=== PATIENT | female | born 1990 | race Caucasian/White ===

== ENCOUNTER 2017-10-16 08:00 | Outpatient (CLI) | payer MEDICAID ==
[2017-10-16 18:44] LABS: BASOPHILS % (AUTO) 0.4 %; EOSINOPHILS # (AUTO) 0.1 10^3/uL (0.0-0.7); EOSINOPHILS % (AUTO) 1.4 %; HGB - HEMOGLOBIN 11.1 g/dL (12.0-16.0); LYMPHOCYTES # (AUTO) 1.8 10^3/uL (1.5-3.5); LYMPHOCYTES % (AUTO) 43.4 %; MEAN CORPUSCULAR HEMOGLOBIN 26.8 pg (27.0-31.0); MEAN CORPUSCULAR HGB CONC 32.8 g/dL (32.0-36.0); MEAN CORPUSCULAR VOLUME 81.7 fL (81.0-99.0); MEAN PLATELET VOLUME 8.6 fL (7.9-10.8); MONOCYTES # (AUTO) 0.3 10^3/uL (0.0-1.0); MONOCYTES % (AUTO) 6.3 %; NEUTROPHILS % (AUTO) 48.5 %; PLT - PLATELET COUNT 233 10^3/uL (130-450); RED BLOOD COUNT 4.16 10^6/uL (4.20-5.40); RED CELL DISTRIBUTION WIDTH 14.2 % (12.0-15.0); WHITE BLOOD COUNT 4.1 x10^3/uL (4.8-10.8)
[2017-10-16 19:18] LABS: ALBUMIN 4.3 g/dL (3.2-5.5); ALBUMIN/GLOBULIN RATIO 1.3 (1.0-2.2); ALKALINE PHOSPHATASE 50 IU/L (42-121); ALT ALANINE AMINOTRANSFERASE 15 IU/L (10-60); AST ASPARTATE AMINOTRANSFERASE 18 IU/L (10-42); BILIRUBIN,TOTAL < 0.2 mg/dL (0.2-1.0); BUN - BLOOD UREA NITROGEN 12 mg/dL (6-20); CALCIUM 8.8 mg/dL (8.5-10.3); CARBON DIOXIDE - CO2 27 mmol/L (21-32); CHLORIDE 105 mmol/L (101-111); CHOL/HDL RATIO 2.8 (<4.4); CHOLESTEROL 157 mg/dL; CREATININE 0.7 mg/dL (0.4-1.0); GFR - MDRD 102 (>89); GLUCOSE 77 mg/dL (70-100); HDL CHOLESTEROL 57 mg/dL; LDL CHOLESTEROL,CALCULATED 86 mg/dL; LDL/HDL RATIO 1.5 (<4.4); SODIUM 137 mmol/L (135-145); TOTAL PROTEIN 7.6 g/dL (6.7-8.2); VLDL CHOLESTEROL 14 mg/dL
== END 2017-10-16 08:01 | disposition home or self-care (01) ==
LOC: LAB.N 08:00
PROVIDERS: ATTEND Nurse Practitioner Gerontology
DX: Z13.9 Encounter for screening, unspecified (principal)
CPT/HCPCS: 36415; 80053; 80061; 83721; 84443; 85025

== ENCOUNTER 2018-09-28 11:15 | Emergency (ER) | payer MEDICAID ==
[2018-09-28] MEDS ORDERED: ONDANSETRON ODT 4 MG TABLET TL STA (13:09)
--- NOTE | 2018-09-28 13:11 | ED Physician Documentation ---
PD HPI NVD - Stated complaint Stated Complaint: FLU LIKE SX/9WKS PREG - Chief complaint Chief Complaint: Abd Pain - History obtained from History obtained from: Patient - History of Present Illness Timing - onset: Yesterday Timing - duration: Days (2) Timing - details: Gradual onset, Still present Associated symptoms: Fever Contributing factors: Sick contact ( sick with flu) Improved by: Laying still, Vomiting Worsened by: Eating Similar symptoms before: Diagnosis (morning sickness) Recently seen: Clinic - Additonal information Additional information: 27-year-old female who is 9 weeks has developed nausea and vomiting as well as low-grade fever. Her family is sick with the flu and she has developed symptoms yesterday. She does not have any significant nasal congestion she has minimal cough she does have nausea and vomiting and this is more than what she remembers from morning sickness previously with her prior . Review of Systems Constitutional: reports: Fever, Chills. denies: Myalgias, Fatigue Eyes: denies: Decreased vision Ears: denies: Ear pain Nose: denies: Rhinorrhea / runny nose, Congestion Throat: denies: Sore throat Cardiac: denies: Chest pain / pressure, Palpitations Respiratory: reports: Cough. denies: Dyspnea GI: reports: Nausea, Vomiting. 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 : None HEENT: None Psych: None Musculoskeletal: None Derm: None - Past Surgical History Past Surgical History: Yes - Present Medications Home Medications: Ambulatory Orders Medication Instructions Recorded Confirmed Ondansetron Odt [Zofran] 4 mg TL Q6H PRN #10 tablet 09/28/18 - Allergies Allergies/Adverse Reactions: Allergies Allergy/AdvReac Type Severity Reaction Status Date / Time No Known Drug Allergies Allergy Verified 09/28/18 11:44 - Social History Does the pt smoke?: No Smoking Status: Never smoker Does the pt drink ETOH?: No Does the pt have substance abuse?: No - Immunizations Immunizations are current?: Yes - POLST Patient has POLST: No PD ED PE NORMAL - Vitals Vital signs reviewed: Yes (normal ) - General General: Alert and oriented X 3, No acute distress, Well developed/nourished - HEENT HEENT: Atraumatic, PERRL, EOMI, Ears normal, Other (dry mucous membranes ) - Neck Neck: Supple, no meningeal sign, No bony TTP - Cardiac Cardiac: RRR, No murmur - Respiratory Respiratory: No respiratory distress, Clear bilaterally - Abdomen Abdomen: Soft, Non tender - Back Back: No CVA TTP, No spinal TTP - Derm Derm: Normal color, Warm and dry, No rash - Extremities Extremities: No deformity, No edema - Neuro Neuro: Alert and oriented X 3, hammerer helper 2-12 intact, No motor deficit, No sensory deficit, Normal speech Eye Opening: Spontaneous Motor: Obeys Commands Verbal: Oriented GCS Score: 15 - Psych Psych: Normal mood, Normal affect Results - Vitals Vitals: Vital Signs - 24 hr 09/28/18 11:40 Temperature 36.5 C Heart Rate 94 Respiratory 18 Rate Blood Pressure 125/79 O2 Saturation 100 Oxygen O2 Source Room air Procedures - Bedside sono Bedside sono by EMP: With use of bedside ultrasound the uterus is imaged there is an 8-week 6-day gestational sac present with a viable fetus. - IVC sono (time) 1300 Bedside IVC sono: IVC measures (cm) (1.27), IVC collapsed c insp (cm) (complete), Dehydration (est 1 liter deficit) PD MEDICAL DECISION MAKING - ED course Complexity details: reviewed results, re-evaluated patient, considered differential, d/w patient, d/w family ED course: 27-year-old female with nausea and vomiting 9 weeks is administered Zofran and a fluid challenge. She is mildly dehydrated and I do not believe she has influenza. Departure - Departure Disposition: 01 Home, Self Care Clinical Impression: Dehydration, Vomiting as reason for care in Condition: Stable Instructions: ED Dehydration, ED Preg Morning Sickness Follow-Up: Akua Saravia ARNP [Primary Care Provider] - Prescriptions: Ondansetron Odt [Zofran] 4 mg TL Q6H PRN #10 tablet PRN Reason: Nausea / Vomiting
[2018-09-28 14:19] VITALS: BP 113/68
== END 2018-09-28 14:29 | disposition home or self-care (01) ==
LOC: ED 11:15
DX: O21.1 Hyperemesis gravidarum with metabolic disturbance (principal); E86.0 Dehydration; Z3A.09 9 weeks gestation of pregnancy
CPT/HCPCS: 99283

== ENCOUNTER 2019-10-10 00:28 | Emergency (ER) | payer MEDICAID ==
[2019-10-10 00:34] VITALS: BP 146/84
--- NOTE | 2019-10-10 01:15 | ED Physician Documentation ---
History of Present Illness - Stated complaint Stated Complaint: COUGH/SINUS PRESSURE - Chief complaint Chief Complaint: Heent - Additonal information Additional information: Patient comes emergency department complaining of rhinorrhea with worsening cough over the last week. Patient states that her cough has gotten deeper and deeper until she now has a searing pain in her right chest shooting to her back every time she coughs. She states she is also had a sore throat. She denies noting fever, headache, nausea, or vomiting. She does not know of any sick contacts. She states that she has a spouse and 2 children at home. Patient s tates that she has been working on her garden and that she does have seasonal allergies, but this feels like more than that. Patient does not have any known covid exposures. No other complaints at this time. Review of Systems Ten Systems: 10 systems reviewed and negative Constitutional: reports: Reviewed and negative Eyes: reports: Reviewed and negative Ears: reports: Reviewed and negative Nose: reports: Rhinorrhea / runny nose, Congestion, Sinus pressure / pain Throat: reports: Reviewed and negative Cardiac: reports: Reviewed and negative Respiratory: reports: Cough GI: reports: Reviewed and negative : reports: Reviewed and negative Skin: reports: Reviewed and negative Musculoskeletal: reports: Reviewed and negative Neurologic: reports: Reviewed and negative Psychiatric: reports: Reviewed and negative Endocrine: reports: Reviewed and negative Immunocompromised: reports: Reviewed and negative PD PAST MEDICAL HISTORY - Past Medical History Cardiovascular: None Respiratory: None Neuro: None Endocrine/Autoimmune: HyPOthyroidism 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 : None HEENT: None Psych: None Musculoskeletal: None Derm: None - Past Surgical History Past Surgical History: Yes - Present Medications Home Medications: Ambulatory Orders Medication Instructions Recorded Confirmed Ondansetron Odt [Zofran] 4 mg TL Q6H PRN #10 tablet 09/28/18 Benzonatate [Tessalon Perle] 100 - 200 mg PO TID PRN #30 capsule 10/10/19 - Allergies Allergies/Adverse Reactions: Allergies Allergy/AdvReac Type Severity Reaction Status Date / Time No Known Drug Allergies Allergy Verified 09/28/18 11:44 - Social History Does the pt smoke?: No Smoking Status: Never smoker Does the pt drink ETOH?: No Does the pt have substance abuse?: No - Immunizations Immunizations are current?: Yes - POLST Patient has POLST: No PD ED PE NORMAL - Vitals Vital signs reviewed: Yes - General General: Alert and oriented X 3, No acute distress - HEENT HEENT: PERRL - Neck Neck: Supple, no meningeal sign - Cardiac Cardiac: RRR, No murmur, Strong equal pulses - Respiratory Respiratory: No respiratory distress, Other (Crackles, right lower lung field) - Abdomen Abdomen: Soft, Non tender, Non distended - Derm Derm: Normal color, Warm and dry, No rash - Extremities Extremities: No deformity, Normal ROM s pain, No edema, No calf tenderness / cord - Neuro Neuro: Alert and oriented X 3, ob tech 2-12 intact, No motor deficit, No sensory deficit, Normal speech - Psych Psych: Normal mood, Normal affect Results - Vitals Vitals: Vital Signs - 24 hr 10/10/19 00:31 Temperature 37 C Heart Rate 80 Respiratory 16 Rate Blood Pressure 146/84 H O2 Saturation 98 Oxygen O2 Source Room air - Rads (name of study) Chest x-ray Radiology: Final report received, EMP read indepedently, See rad report (Negative) PD MEDICAL DECISION MAKING - ED course Complexity details: reviewed results, re-evaluated patient, considered differential, d/w patient ED course: I discussed with the patient that I think she should have a chest x-ray, due to the worsening cough, the pain on the right side, and the crackles in the right lower lung field. I did discuss with the patient that at this point, she does not have symptoms that really indicate a likelihood of coronavirus infection or influenza. I discussed with the patient that while we can test the patient for covid, I expect that most likely, her results will be negative. Patient would like to go ahead with covid testing anyway. Her chest x-ray is negative. She has been discharged home and will be notified of her results from the Covid testing when they come back. We have discussed home management of symptoms, as well as usual indications for return. Departure - Departure Disposition: 01 Home, Self Care Clinical Impression: Upper respiratory infection Qualifiers: URI type: unspecified viral URI Qualified Code(s): J06.9 - Acute upper respiratory infection, unspecified Chest pain Qualifiers: Chest pain type: pleurodynia Qualified Code(s): R07.81 - Pleurodynia Condition: Stable Instructions: ED URI Viral Prescriptions: Benzonatate [Tessalon Perle] 100 - 200 mg PO TID PRN #30 capsule PRN Reason: Cough Comments: Your chest x-ray is completely normal. You may have some inflammation of the lining of your chest cavity that can sometimes occur with an upper respiratory infection, which is causing your pain. There is no evidence of pneumonia or other bacterial infection at this time, and as such, antibiotics will not be helpful. Your coronavirus test is pending at this time, and will be back in the next 24 to 72 hours, as we have discussed. Although if you do have coronavirus, you have a very mild case, we still must advise you that you should not go about in public until your test results are back. Please take the cough medicine as needed, and drink plenty of fluids and get plenty of rest. Discharge Date/Time: 10/10/19 02:00
--- NOTE | 2019-10-10 01:37 | XRAY Report ---
Reason: cough Procedure Date: 10/10/2019 Accession Number: [id number] / [id number] Procedure: XR - Chest 2 View X-Ray CPT Code: 59809 Final Report FULL RESULT: EXAM: CHEST RADIOGRAPHY EXAM DATE: 10/10/2019 01:32 AM. CLINICAL HISTORY: Productive cough. COMPARISON: None. TECHNIQUE: 2 views. FINDINGS: Lungs/Pleura: No alveolar consolidation or pleural effusion seen. No pneumothorax. Mediastinum: Heart and mediastinal contours are unremarkable. Other: None. IMPRESSION: 1. No acute abnormality seen in the chest. RADIA
== END 2019-10-10 02:00 | disposition home or self-care (01) ==
LOC: ED 00:28
DX: J06.9 Acute upper respiratory infection, unspecified (principal); R07.81 Pleurodynia
CPT/HCPCS: 71046; 81599; 99284

== ENCOUNTER 2020-04-10 07:00 | Outpatient (CLI) | payer MEDICAID | END 2020-04-10 23:59 | disposition home or self-care (01) | LOC: LAB.R 07:00 | PROVIDERS: ATTEND Physician Assistant | DX: R30.0 Dysuria (principal) | CPT/HCPCS: 87086 ==

== ENCOUNTER 2020-04-26 19:46 | Outpatient (CLI) | payer MEDICAID ==
--- NOTE | 2020-04-27 10:33 | Ultrasound Report ---
PROCEDURE: Pelvic w/Transvaginal INDICATIONS: INTERMENSTRUAL BLEEDING TECHNIQUE: Real-time scanning was performed of the pelvic organs, with image documentation. Additional endovagi nal scanning was necessary due to incomplete visualization of the adnexal and endometrial structures by transabdominal scanning. COMPARISON: None. FINDINGS: Transabdominal scanning: Limited scanning through the kidneys shows no hydronephrosis. No pathologi c free abdominal or pelvic fluid. Endovaginal scanning: Uterus: Uterus is anteverted and normal in size at 9.1 x 5.2 x 6.0 cm. A T-shaped IUD is present in the adequate position in the fundal endometrium. The endometrium measures 16 mm in combined thickness . There is a focal, rounded, partially exophytic subserosal focus of heterogeneity in the anterior lo wer uterine segment measuring 1.2 x 1.1 x 1.2 cm Ovaries: The right ovary measures 3.0 x 2.5 x 3.9 cm for a volume of 14.9 cc. It contains a thick-wa lled corpus luteum measuring about 2.5 cm. The left ovary measures 2.5 x 1.8 x 3.4 cm for a volume of 8.1 cc. It demonstrates a normal follicular echotexture with less than 12 follicles. IMPRESSION: 1. The endometrial thickness is at the upper limits of normal. 2. IUD appears in satisfactory position. 3. A 1.2 cm subserosal anterior lower uterine segment mass may be a fibroid versus ongoing healing or scar tissue if there has been a . Reviewed by: Alpa Chun MD on 04/27/2020 10:32 AM PDT Approved by: Alpa Chun MD on 04/27/2020 10:32 AM PDT Station ID: [id number]
== END 2020-04-26 19:47 | disposition home or self-care (01) ==
LOC: DI 19:46
PROVIDERS: ATTEND Physician Assistant
DX: R93.89 Abnormal findings on diagnostic imaging of other specified body structures (principal); Z97.5 Presence of (intrauterine) contraceptive device
CPT/HCPCS: 76830; 76856

== ENCOUNTER 2020-05-04 11:26 | Outpatient (CLI) | payer MEDICAID ==
[2020-05-04 11:45] LABS: HGB - HEMOGLOBIN 10.8 g/dL (12.0-16.0); MEAN CORPUSCULAR HEMOGLOBIN 26.8 pg (27.0-31.0); MEAN CORPUSCULAR HGB CONC 31.7 g/dL (32.0-36.0); MEAN CORPUSCULAR VOLUME 84.6 fL (81.0-99.0); MEAN PLATELET VOLUME 9.3 fL (7.9-10.8); RED BLOOD COUNT 4.03 10^6/uL (4.20-5.40); RED CELL DISTRIBUTION WIDTH 13.5 % (12.0-15.0); WHITE BLOOD COUNT 5.2 x10^3/uL (4.8-10.8)
[2020-05-04 12:05] LABS: % IRON SATURATION 6 % (20-50); IRON 24 ug/dL (28-170); TOTAL IRON BINDING CAPACITY 428 ug/dL (250-450); TRANSFERRIN 306 mg/dL (192-382)
[2020-05-04 12:18] LABS: FERRITIN 5.3 ng/mL (11.0-306.8)
== END 2020-05-04 11:27 | disposition home or self-care (01) ==
LOC: LAB 11:26
PROVIDERS: ATTEND Obstetrics & Gynecology
DX: E55.9 Vitamin D deficiency, unspecified (principal); R53.81 Other malaise; N92.1 Excessive and frequent menstruation with irregular cycle
CPT/HCPCS: 36415; 82306; 82607; 82728; 83540; 84443; 84466; 85027

== ENCOUNTER 2020-06-06 08:00 | Outpatient (CLI) | payer MEDICAID ==
[2020-06-06 16:48] LABS: BILIRUBIN,URINE NEGATIVE (NEGATIVE); GLUCOSE, URINE (UA) NEGATIVE (NEGATIVE); KETONES,URINE (UA) NEGATIVE (NEGATIVE); LEUKOCYTE ESTERASE, URINE TRACE (NEGATIVE); NITRITE,URINE NEGATIVE (NEGATIVE); OCCULT BLOOD,URINE NEGATIVE (NEGATIVE); PROTEIN,URINE NEGATIVE (NEGATIVE); UROBILINOGEN,URINE 0.2 (NORMAL) E.U./dL (NORMAL)
[2020-06-06 16:49] LABS: CLARITY,URINE CLOUDY (CLEAR)
[2020-06-06 17:21] LABS: AMORPHOUS SEDIMENT,UR Marked /LPF; BACTERIA,URINE Moderate /HPF (None Seen); RBC,URINE None Seen /HPF (0-5); SQUAMOUS EPITHELIAL CELL,UR MANY Squamous (<= Few)
== END 2020-06-06 23:59 | disposition home or self-care (01) ==
LOC: LAB.R 08:00
PROVIDERS: ATTEND Advanced Practice Midwife
DX: Z32.01 Encounter for pregnancy test, result positive (principal)
CPT/HCPCS: 81001; 87086

== ENCOUNTER 2020-06-12 16:23 | Outpatient (CLI) | payer BC, MEDICAID ==
--- NOTE | 2020-06-13 09:45 | Ultrasound Report ---
PROCEDURE: OB First Trimester w/TV INDICATIONS: TEST POSITIVE OUTSIDE/PRIOR DATING DATA: Last menstrual period (LMP): 04/25/2020. LMP-based estimated date of delivery (STEPHANY): 01/30/2021. First dating scan (date and location): 06/12/2020. Estimated date of delivery (STEPHANY) from first dating scan: 02/03/2021. TECHNIQUE: Real-time scanning was performed of the fetus and maternal pelvic organs, with image documentation. Endovaginal scanning was also performed to better visualize the fetus and maternal ovaries. COMPARISON: None FINDINGS: Embryo: Single living intrauterine fetus is present with a crown-rump length measuring 0.5 cm, 6 wee ks 2 days. The heart rate measures 130 bpm. Yolk sac is visualized. Small perigestational hemorrhage measuring 1.0 x 0.3 cm. Measurement variability in dating: +/- 4 weeks by LMP, +/- 7 days by mean sac diameter (use before 6 weeks gestation if crown-rump length not able to be measured), +/- 5 days by crown-rump length (6-12 weeks gestation). Maternal organs: Ovaries unremarkable except for a presumed right-sided corpus luteum. Lower uterine segment anterior fibroid seen on the last pelvic ultrasound is not well visualized sonographically o n today's study.. Limited images through the kidneys demonstrate no hydronephrosis. IMPRESSION: Single living intrauterine fetus with a gestational age measuring 6 weeks and 2 days by today's ultra sound measurements Small perigestational hemorrhage Reviewed by: Robb Roland MD on 06/13/2020 9:44 AM PST Approved by: Robb Roland MD on 06/13/2020 9:44 AM PST Station ID: [id number]
== END 2020-06-12 16:24 | disposition home or self-care (01) ==
LOC: DI 16:23
PROVIDERS: ATTEND Advanced Practice Midwife
DX: Z32.01 Encounter for pregnancy test, result positive (principal)

== ENCOUNTER 2020-06-20 08:28 | Outpatient (CLI) | payer BC, MEDICAID | END 2020-06-20 08:29 | disposition critical access hospital (66) | LOC: EMS 08:28 | PROVIDERS: ATTEND Surgery | DX: M54.5 Low back pain (principal) | CPT/HCPCS: A0425; A0429 ==

== ENCOUNTER 2020-06-20 08:44 | Emergency (ER) | payer BC, MEDICAID ==
[2020-06-20] MEDS ORDERED: HYDROcod/ACETAM 5/325 MG TABLET PO STA (08:54)
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
[2020-06-20 10:30] VITALS: BP 116/70
== END 2020-06-20 10:37 | disposition home or self-care (01) ==
LOC: ED 08:44
DX: O9A.211 Injury, poisoning and certain other consequences of external causes complicating pregnancy, first trimester (principal); S39.012A Strain of muscle, fascia and tendon of lower back, initial encounter; V89.2XXA Person injured in unspecified motor-vehicle accident, traffic, initial encounter; Y93.89 Activity, other specified; O99.891 Other specified diseases and conditions complicating pregnancy; M54.9 Dorsalgia, unspecified; G89.29 Other chronic pain; Z3A.01 Less than 8 weeks gestation of pregnancy
CPT/HCPCS: 76801; 76817; 99284; A9270

== ENCOUNTER 2020-07-16 08:00 | Outpatient (CLI) | payer BC, MEDICAID ==
[2020-07-16 18:35] LABS: BASOPHILS % (AUTO) 0.2 %; EOSINOPHILS % (AUTO) 0.4 %; HGB - HEMOGLOBIN 11.7 g/dL (12.0-16.0); LYMPHOCYTES # (AUTO) 1.7 10^3/uL (1.5-3.5); LYMPHOCYTES % (AUTO) 30.9 %; MEAN CORPUSCULAR HEMOGLOBIN 27.5 pg (27.0-31.0); MEAN CORPUSCULAR HGB CONC 32.9 g/dL (32.0-36.0); MEAN CORPUSCULAR VOLUME 83.6 fL (81.0-99.0); MEAN PLATELET VOLUME 10.1 fL (7.9-10.8); MONOCYTES # (AUTO) 0.4 10^3/uL (0.0-1.0); MONOCYTES % (AUTO) 6.5 %; NEUTROPHILS # (AUTO) 3.3 10^3/uL (1.5-6.6); NEUTROPHILS % (AUTO) 61.8 %; PLT - PLATELET COUNT 241 10^3/uL (130-450); RED BLOOD COUNT 4.26 10^6/uL (4.20-5.40); RED CELL DISTRIBUTION WIDTH 14.1 % (12.0-15.0); WHITE BLOOD COUNT 5.4 x10^3/uL (4.8-10.8)
[2020-07-17 14:41] LABS: HEPATITIS B SURFACE ANTIGEN NON-REACTIVE (NON-REACTIVE)
[2020-07-17 14:56] LABS: HEPATITIS C ANTIBODY NON-REACTIVE (NON-REACTIVE)
[2020-07-17 15:18] LABS: HIV AG/AB 4TH GEN NON-REACTIVE (NON-REACTIVE)
== END 2020-07-16 08:01 | disposition home or self-care (01) ==
LOC: LAB.WCP 08:00
PROVIDERS: ATTEND Obstetrics & Gynecology
DX: Z36.89 Encounter for other specified antenatal screening (principal); O99.280 Endocrine, nutritional and metabolic diseases complicating pregnancy, unspecified trimester; E06.3 Autoimmune thyroiditis; E55.9 Vitamin D deficiency, unspecified
CPT/HCPCS: 36415; 81599; 82306; 84443; 85025; 86592; 86762; 86787; 86803; 86850; 86900; 86901; 87340; 87389

== ENCOUNTER 2020-07-20 15:33 | Outpatient (CLI) | payer BC, MEDICAID ==
--- NOTE | 2020-07-20 17:44 | MRI Report ---
PROCEDURE: Cervical Spine W/O INDICATIONS: CERVICAL RADICULOPATHY, LUMBAR RADICULOPATHY TECHNIQUE: Noncontrast sagittal T1 spin echo and T2 fast spin echo, sagittal STIR, foraminal oblique sagittal T2 fast spin echo, and axial gradient echo or T2 fast spin echo through the cervical spine. COMPARISON: 05/23/2010 FINDINGS: Image quality: Motion artifact is noted. Alignment and Curvature: There is normal bony alignment. Bone Marrow: Marrow demonstrates normal overall signal. Spinal Cord: Visualized spinal cord has normal size and signal. No cerebellar tonsillar herniation. Paraspinous Soft Tissues: No paravertebral masses. Prevertebral soft tissues are normal in thicknes s. C2-C3: No significant abnormality is seen. C3-C4: The disc height is well-preserved. There is loss of disc signal seen. Moderate disc osteophy te complex is seen, which is eccentric to the left. There is mild to moderate facet hypertrophy seen. There is at least moderate left-sided and mild right-sided neuroforaminal narrowing seen. No signifi cant central canal narrowing is seen. C4-C5: No significant abnormality is seen. C5-C6: The disc height is well-preserved. There is loss of disc signal seen. Mild disc osteophyte c omplex is seen. Moderate facet hypertrophy is seen. There is mild bilateral neuroforaminal narrow ing seen. No significant central canal narrowing is seen. C6-C7: The disc height is well-preserved. There is loss of disc signal seen. Moderate disc osteophy te complex is seen. There is moderate left-sided and mild right-sided neuroforaminal narrowing seen. No significant central canal narrowing is seen. C7-T1: Normal in appearance. 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 Reviewed by: David Melchor MD on 07/20/2020 4:43 PM [place] Approved by: David Melchor MD on 07/20/2020 4:43 PM [facility] Station ID: [id number]
--- NOTE | 2020-07-23 13:45 | MRI Report ---
PROCEDURE: Lumbar Spine W/O INDICATIONS: LUMBAR RADICULOPATHY TECHNIQUE: Noncontrast sagittal T1 spin echo and T2 fast echo, sagittal STIR, axial T1 and T2 fast spin echo thr ough the lumbar spine. In cases with scoliosis, additional coronal T2 fast spin echo may be performe d. COMPARISON: None. FINDINGS: Image quality: Excellent. Alignment and Curvature: There is normal bony alignment. Bone Marrow: Marrow is of normal overall signal. No acute vertebral body compression fractures. Spinal Cord: Conus medullaris terminates at the T12 level. Visualized cord demonstrates normal sign al and size. Paraspinous Soft Tissues: No paravertebral masses. T12-L1: No disc bulge. The foramina and central canal are patent. L1-L2: No disc bulge. The foramina and central canal are patent. L2-L3: No disc bulge. The foramina and central canal are patent. L3-L4: No disc bulge. The foramina and central canal are patent. L4-L5: No disc bulge. The foramina and central canal are patent. L5-S1: No disc bulge. The foramina and central canal are patent. IMPRESSION: 1. Normal MRI of the lumbar spine. 2. No disc bulge, protrusion, or extrusion. 3. The visualized spinal cord is normal. Reviewed by: Romaine Gray on 07/23/2020 1:44 PM PST Approved by: Romaine Gray on 07/23/2020 1:44 PM PST Station ID: [id number]
== END 2020-07-20 15:34 | disposition home or self-care (01) ==
LOC: DI 15:33
PROVIDERS: ATTEND Physician Assistant Medical
DX: M54.16 Radiculopathy, lumbar region (principal); M47.812 Spondylosis without myelopathy or radiculopathy, cervical region; M50.31 Other cervical disc degeneration, high cervical region; M48.02 Spinal stenosis, cervical region

== ENCOUNTER 2020-09-14 16:00 | Outpatient (CLI) | payer BC, MEDICAID ==
--- NOTE | 2020-09-14 20:35 | Ultrasound Report ---
PROCEDURE: OB Detailed Eval INDICATIONS: SUPER OF NORMAL MULTIGRAVIDA OUTSIDE/PRIOR DATING DATA: Last menstrual period (LMP): 04/25/2020. LMP-based estimated date of delivery (STEPHANY): 01/30/2021. First dating scan (date and location): 06/12/2020. Estimated date of delivery (STEPHANY) from first dating scan: 01/30/2021 TECHNIQUE: Real-time scanning was performed of the fetus, with image documentation and biometric measurements. COMPARISON: OB ultrasound 06/12/2020, 06/20/2020 FINDINGS: General: A single living intrauterine gestation is present. Presentation: Variable Placenta: Placental position is posterior. It is low-lying approximately 1.1 cm from the internal os . Amniotic fluid index: 14.8 cm, 56 percentile for gestational age. heart rate: 160 beats per minute. Maternal cervical canal: 5.8 cm long; normal length is 2.5 cm or more. biometrics: Biparietal diameter: 4.5 cm 19 weeks 4 days Head circumference: 17.4 cm 20 weeks 0 days Abdominal circumference: 15.0 cm 20 weeks 2 days Femur length: 3.1 cm 19 weeks 4 days Estimated gestational age from initial scan: 20 weeks 2 days Composite gestational age from present scan: 19 weeks 6 days Estimated weight and percentile: 3 20 g 25th percentile Measurement variability in biometric dating: +/- 10 days from 12-20 weeks gestation, +/- 2 weeks from 20-30 weeks gestation, +/- 3 weeks at 30 weeks gestation or later. Anatomic survey: Neuro: Ventricles are normal at less than 10 mm. Cisterna magna is normal at 3-11 mm. Cerebellum i s normal in size and morphology. Nuchal skin fold: Normal at less than 6 mm between 14 and 20 weeks gestational age. Face: Nose and lips, facial profile are normal. Spine: No evidence for spina bifida. Heart: 4-chambered heart is present, with normal ventricular outflow tracts. Diaphragm: Diaphragm is intact. Stomach: Left-sided stomach is present. Kidneys: No hydronephrosis. Normal is less than 5 mm in 2nd trimester, less than 7 mm in 3rd trimester. Cord: 3 vessel cord has orthotopic insertion. Bladder: Normal in size. Extremities: All 4 extremities are visualized. IMPRESSION: 1. Single live intrauterine . 2. Anatomy is within normal limits. 3. Low-lying placenta approximately 1.1 cm from the internal os. Reviewed by: Mayra Day MD on 09/14/2020 8:33 PM PST Approved by: Mayra Day MD on 09/14/2020 8:33 PM PST Station ID: [id number]
== END 2020-09-14 16:01 | disposition home or self-care (01) ==
LOC: DI 16:00
PROVIDERS: ATTEND Obstetrics & Gynecology
DX: O44.42 Low lying placenta NOS or without hemorrhage, second trimester (principal); Z3A.19 19 weeks gestation of pregnancy

== ENCOUNTER 2020-11-09 14:52 | Outpatient (CLI) | payer MEDICAID ==
--- NOTE | 2020-11-09 19:21 | Ultrasound Report ---
PROCEDURE: OB F/U or Repeat INDICATIONS: LOW LYING PLACENTA, SUPER OF MULTIGRAVIDA PREG OUTSIDE/PRIOR DATING DATA: Last menstrual period (LMP): 04/25/2020. LMP-based estimated date of delivery (STEPHANY): 01/30/2021. First dating scan (date and location): 06/12/2020. Estimated date of delivery (STEPHANY) from first dating scan: 02/03/2021. TECHNIQUE: Real-time scanning was performed of the fetus, with image documentation and biometric measurements. Endovaginal scanning: No COMPARISON: 09/14/2020 ultrasound FINDINGS: General: A single living intrauterine gestation is present. Presentation: Transverse with head to maternal left Placenta: Inferior edge of placenta is 1.4 cm from internal cervical os following maternal voiding. Amniotic fluid index: 16.6 cm, 66th percentile for gestational age. heart rate: 147 beats per minute. Maternal cervical canal: 5.2 cm long; normal length is 2.5 cm or more. Other: Not applicable. IMPRESSION: 1. Single living intrauterine gestation. 2. Inferior placental edge is 1.4 cm from internal cervical os following maternal voiding. Reviewed by: Quin Ramires MD on 11/09/2020 7:19 PM PDT Approved by: Quin Ramires MD on 11/09/2020 7:19 PM PDT Station ID: [id number]
== END 2020-11-09 14:53 | disposition home or self-care (01) ==
LOC: DI 14:52
PROVIDERS: ATTEND Obstetrics & Gynecology
DX: O44.00 Complete placenta previa NOS or without hemorrhage, unspecified trimester (principal); Z3A.00 Weeks of gestation of pregnancy not specified

== ENCOUNTER 2020-11-12 16:18 | Outpatient (CLI) | payer MEDICAID ==
[2020-11-12 16:40] VITALS: BP 111/63
--- NOTE | 2020-12-04 17:00 | PROCEDURE REPORT ---
- HPI Diagnosis/Indication for NST: Other (vasovagal episode) Current EDU 01/30/21 Gestation 28 Weeks and 5 Days 3 Para 2 Vital Signs Temperature 98.4 F 11/12/20 16:37 Heart Rate 93 11/12/20 16:37 Blood Pressure 111/63 11/12/20 16:37 Temperature 98.4 F 11/12/20 16:37 Heart Rate 93 11/12/20 16:37 Respiratory Rate Blood Pressure 111/63 11/12/20 16:37 O2 Saturation - NST Procedure NST Procedure Start Date 11/12/20 Start Time 16:30 Vibroacoustic Stimulation Used No Patient States Movement Yes - Results and Plan Findings/Impression: Baseline: normal BPM Variability: Moderate Accelerations: Present Decelerations: Absent Trends in FHR over time: no changes [place] contractions in 10 minutes: 0 Impression: reactive Category 1 NST
== END 2020-11-12 17:30 | disposition home or self-care (01) ==
LOC: WFO 16:18 → FBP 16:19 → WFO 17:30
PROVIDERS: ATTEND Obstetrics & Gynecology
DX: O99.891 Other specified diseases and conditions complicating pregnancy (principal); R55 Syncope and collapse; Z3A.28 28 weeks gestation of pregnancy
CPT/HCPCS: 59025; 99212; 99213

== ENCOUNTER 2020-11-14 08:00 | Outpatient (CLI) | payer MEDICAID ==
[2020-11-14 17:59] LABS: HCT - HEMATOCRIT 30.1 % (37.0-47.0); HGB - HEMOGLOBIN 9.7 g/dL (12.0-16.0); MEAN CORPUSCULAR HEMOGLOBIN 28.4 pg (27.0-31.0); MEAN CORPUSCULAR HGB CONC 32.2 g/dL (32.0-36.0); MEAN CORPUSCULAR VOLUME 88.3 fL (81.0-99.0); MEAN PLATELET VOLUME 9.9 fL (7.9-10.8); RED BLOOD COUNT 3.41 10^6/uL (4.20-5.40); WHITE BLOOD COUNT 7.7 x10^3/uL (4.8-10.8)
[2020-11-14 18:56] LABS: THYROID STIMULATING HORMONE 1.5 uIU/mL (0.34-5.60)
== END 2020-11-14 23:59 | disposition home or self-care (01) ==
LOC: LAB.WCP 08:00
PROVIDERS: ATTEND Obstetrics & Gynecology
DX: Z36.89 Encounter for other specified antenatal screening (principal); Z13.21 Encounter for screening for nutritional disorder; O99.280 Endocrine, nutritional and metabolic diseases complicating pregnancy, unspecified trimester; E06.3 Autoimmune thyroiditis
CPT/HCPCS: 36415; 82306; 82950; 84443; 85025; 85027

== ENCOUNTER 2020-12-04 08:00 | Outpatient (CLI) | payer MEDICAID ==
[2020-12-05 20:02] LABS: BACTERIAL VAGINOSIS DNA POSITIVE (NEGATIVE); CANDIDA GLABRATA DNA NEGATIVE (NEGATIVE); CANDIDA GROUP DNA NEGATIVE (NEGATIVE); CANDIDA KRUSEI DNA NEGATIVE (NEGATIVE); TRICHOMONAS VAGINALIS DNA NEGATIVE (NEGATIVE)
[2020-12-05 22:51] LABS: CHLAMYDIA TRACHOMATIS DNA INDETERMINATE (NEGATIVE); TRICHOMONAS VAGINALIS DNA UNRESOLVED (NEGATIVE)
[2020-12-05 22:52] LABS: NEISSERIA GONORRHOEAE DNA INDETERMINATE (NEGATIVE)
== END 2020-12-04 23:59 | disposition home or self-care (01) ==
LOC: LAB.R 08:00
PROVIDERS: ATTEND Obstetrics & Gynecology
DX: O44.40 Low lying placenta NOS or without hemorrhage, unspecified trimester (principal); Z36.85 Encounter for antenatal screening for Streptococcus B
CPT/HCPCS: 82731; 87491; 87591; 87661; 87801

== ENCOUNTER 2021-01-03 08:00 | Outpatient (CLI) | payer MEDICAID | END 2021-01-03 23:59 | disposition home or self-care (01) | LOC: LAB.WC 08:00 | PROVIDERS: ATTEND Obstetrics & Gynecology | DX: Z34.80 Encounter for supervision of other normal pregnancy, unspecified trimester (principal); Z36.89 Encounter for other specified antenatal screening | CPT/HCPCS: 87797 ==

== ENCOUNTER 2021-01-08 14:52 | Outpatient (CLI) | payer MEDICAID ==
--- NOTE | 2021-01-08 17:24 | Ultrasound Report ---
PROCEDURE: OB Limited INDICATIONS: LOW LYING PLACENTA OUTSIDE/PRIOR DATING DATA: Last menstrual period (LMP): 04/25/2020. LMP-based estimated date of delivery (STEPHANY): 01/22/2021. First dating scan (date and location): 06/12/2020. Estimated date of delivery (STEPHANY) from first dating scan: 01/30/2021. The below data below was generated using the provider stated STEPHANY of 01/30/2021 TECHNIQUE: Real-time scanning was performed of the fetus, with image documentation. Endovaginal scanning: Not performed COMPARISON: 06/12/2020, 06/20/2020, 09/14/2020, 11/09/2020. FINDINGS: A single living intrauterine gestation is present. Presentation: Transverse head maternal right Placenta: Placental position is posterior, without previa. Amniotic fluid index: 17.6 cm, normal for gestational age. Largest pocket 5.1 cm heart rate: 169 beats per minutes. IMPRESSION: Single living intrauterine fetus. Inferior placental margin is visualized 2.1-2.3 cm fro m the internal os (postvoid). Previously this measured 1.4 cm on 11/09/2020. Reviewed by: Robb Roland MD on 01/08/2021 5:23 PM PDT Approved by: Robb Roland MD on 01/08/2021 5:23 PM PDT Station ID: [id number]
== END 2021-01-08 14:53 | disposition home or self-care (01) ==
LOC: DI 14:52
PROVIDERS: ATTEND Obstetrics & Gynecology
DX: O44.00 Complete placenta previa NOS or without hemorrhage, unspecified trimester (principal)

== ENCOUNTER 2021-01-09 14:00 | Outpatient (CLI) | payer MEDICAID ==
[2021-01-09] MEDS ORDERED: TERBUTALINE 1 MG/ML VIAL SUBQ PRN (14:18)
[2021-01-09] MEDS ORDERED: MINERAL OIL LIGHT 10 ML MC ONE (14:20)
--- NOTE | 2021-01-09 14:40 | HISTORY & PHYSICAL EXAMINATION ---
Admit History - Smoking Status: Never smoker - Mother's Labs Mother's Blood Type: positive: A Mother's RH: positive: Positive - Other Maternal History Other Maternal History: ID: The patient is a 29-year-old at 37 weeks 0 day by LMP and 7-week ultrasound, here for ECV. HPI: Patient underwent and us on 01/08/21 that showed a posterio palcenta, WALESKA 17, and fetus in transverse lie with head on maternal right. She was seen in clinic today and us again confrimed malpresentation but more consistent with breech. She is interested in ECV. . She has had 2 prior vaginal deliveries. She had chlamydia when she was 15. No other STIs and specifically denies HSV. She has a history of Toby's thyroiditis. She does report cold sores that were active at last visit and for which she has started valacyclovir. She otherwise denies genital HSV. No prior surgeries. Was vertex at 36 week visit. PNC: LMP: 04/25/2020 gives STEPHANY 01/30/2021. US on 06/20/2020 at 7W2D gives STEPHANY of 02/03/2021; consistent with dates. Low lying placenta on US -Repeat us showed placenta edge to be 1.4 with empty bladder and 2.3 cm with full bladder. -Resolved on 01/08/21 us. HCT 30-on BID iron Hx of thyroid dz in family and personal hx of vit D deficiency; TSH wnl in first trimester and at 28 weeks Vit D- supplementation increased due to low levels on prior dose labs A pos/ RUB EQUIVOCAL Genetic testing: Declines genetic testing and carrier status testing FAS: Low lying placenta at 1.1 cm from internal os. Posterior placenta. 3VC, CL 5.8 cm FAS wnl Male -FU ordered-scheduled for 01/08/21 TDAP given Glucola 101 HSV: Denies genital HSV. Having cold sores at 36 weeks. Ordered valacyclovir and will cont past delivery GBS negative Breast pump Rx. MOD: Anticipate . Pap: 04/10/2020; due in 2022. Contraception: Declined BTL. Considering Nexplanon vs repeat IUD Past Medical History: Hospitalizd with [facility] as a child right ankle fracture, no surg. required history of Toby's, most recent TSH was normal patient not on medication Toby's. Past Surgical History: Reviewed and updated today: None. ROS: As per HPI, otherwise remaining systems are negative. PE: GEN: NAD HEAD: NCAT EYES: No scleral icterus or conjunctival injection CV: RR RESP: CTAB, normal effort ABD: S&NT/ND, FH 37 PSYCH: appropriate affect NEURO: alert and oriented, normal gait and coordination EXT: WWP EFM 140 mod sanford 15x15 accels decels TOCO: quiet breech by bedside us 01/08/21 formal us shows posterior placenta, WALESKA 17, transverse lie A/P: The patient is a 29-year-old at 37 weeks 0 day by LMP and 7-week ultrasound, here for ECV. R/B/A reviewed for ECV and concomitant ; Risks for ECV include but are not limited to ROM, abruption, terminal bradycardia. All of these would result in immediate delivery via . Reviewed risks/benefits/alternatives to Risks include, but are not limited to, bleeding, infection, damage to neatby tissue and organs. On average, EBL of up to 1 liter is considered within normal limits for CS. Risks of blood transfusion include infection Risk of HIV 1/2million nationwide Risk of Hepatitis 1/1 million Risks of transfusion reaction Infection risk moderate given clean/contaminated nature of procedure and IV antibiotics will be given. Damage to nearby tissue and organs including bladder, bowel, ureters, blood vessels, nerves, and fetus Damage may be noted intra-op and may be delayed until after the procedure is complete Reviewed management of complications and efforts to avoid such outcomes but reviewed that they may occur despite our best efforts Written informed consent obtained. Cat I tracing Rh positive OR aware and standing by Pretreatment with terbutaline and fentanyl. Meds/Allgy - Home Medications Home Medications: Ambulatory Orders Medication Instructions Recorded Confirmed Ondansetron Odt [Zofran] 4 mg TL Q6H PRN #10 tablet 09/28/18 06/20/20 HYDROcod/ACETAM 5/325 [[place] 5/325] 1 - 2 ea PO Q6H PRN #14 tablet 06/20/20 - Allergies Allergies/Adverse Reactions: Allergies Allergy/AdvReac Type Severity Reaction Status Date / Time Bleach (Sodium Hypochlorite) Allergy Unknown Verified 06/21/20 07:28 human papillomavirus Allergy Unknown Verified 01/09/21 14:29 vaccine, quadr [From Gardasil (PF)] latex Allergy Unknown Verified 06/21/20 07:28 pollen extracts Allergy Unknown Verified 01/09/21 14:29
[2021-01-09 14:50] LABS: BASOPHILS % (AUTO) 0.1 %; EOSINOPHILS % (AUTO) 0.1 %; HGB - HEMOGLOBIN 9.5 g/dL (12.0-16.0); LYMPHOCYTES # (AUTO) 1.6 10^3/uL (1.5-3.5); LYMPHOCYTES % (AUTO) 21.4 %; MEAN CORPUSCULAR HEMOGLOBIN 25.8 pg (27.0-31.0); MEAN CORPUSCULAR HGB CONC 31.7 g/dL (32.0-36.0); MEAN CORPUSCULAR VOLUME 81.5 fL (81.0-99.0); MEAN PLATELET VOLUME 9.5 fL (7.9-10.8); MONOCYTES # (AUTO) 0.4 10^3/uL (0.0-1.0); NEUTROPHILS # (AUTO) 5.5 10^3/uL (1.5-6.6); NEUTROPHILS % (AUTO) 72.9 %; PLT - PLATELET COUNT 239 10^3/uL (130-450); RED BLOOD COUNT 3.68 10^6/uL (4.20-5.40); RED CELL DISTRIBUTION WIDTH 13.6 % (12.0-15.0); WHITE BLOOD COUNT 7.6 x10^3/uL (4.8-10.8)
[2021-01-09] MEDS ORDERED: SODIUM CHLORIDE FLUSH 0.9% 10 ML SYRINGE IVP PRN (14:50)
[2021-01-09] MEDS ORDERED: fentaNYL 100 MCG/2 ML VIAL IVP ONE (14:50)
[2021-01-09] MEDS ORDERED: ONDANSETRON 4 MG/2 ML VIAL IVP PRN (14:50)
[2021-01-09] MEDS ORDERED: fentaNYL 100 MCG/2 ML VIAL IVP PRN (14:51)
[2021-01-09 16:25] VITALS: BP 116/70
--- NOTE | 2021-01-15 16:18 | OPERATIVE REPORT ---
Operative Report - General Planned Procedure: External cephalic version Pre-Op Diagnosis: IUP at 37 weeks, breech presentation Procedure Performed: External cephalic version Post Op Diagnosis: Same and vertex presentation - Procedure Note Primary Surgeon: Lindy Moody MD Anesthesia Technique: Other (IV fentanyl 50 mcg prior to procedure) Pathology: None IV Fluids (mL): 0 Estimated Blood Loss (mL): 0 Urine Output (mL): 0 Indications: The patient is a 29-year-old at 37 weeks 0 day by LMP and 7-week ultrasound, here for ECV. Patient underwent and us on 01/08/21 that showed a posterior placenta, WALESKA 17, and fetus in transverse lie with head on maternal right. She was seen in clinic today and us again confirmed malpresentation but more consistent with breech. She is interested in ECV. She has had 2 prior vaginal deliveries. She had chla mydia when she was 15. No other STIs and specifically denies HSV. She has a history of Tboy's thyroiditis. She does report cold sores that were active at last visit and for which she has started valacyclovir. She otherwise denies genital HSV. No prior surgeries. Was vertex at 36 week visit. Findings: Fetus in breech presentation, vertex with unstable lie post procedure Complications: None - Other Other Information/Narrative: Written informed consent was again confirmed prior to procedure. Bed Bedside ultrasound was performed which confirmed the single intrauterine and in breech presentation with head on maternal right. There was noted to be adequate fluid with formal WALESKA of 17 noted on 01/08/21. Category I tracing prior to procedure. Patient was administered fentanyl 50 mcg IV x1 prior to procedure as well as terbutaline 0.25 mg SQ. Using manual pressure, the fetus was manipulated with gentle pressure from the palms against the buttock and posterior occupit to stimulate a forward roll. In total, three attempts where made, all of which showed forward progress towards vertex presentation until cephalic presentation was confirmed. HRs were obtained between each attempt and were reassuring. On the final attempt, the fetus shifted into a vertex lie. patient underwent continuous external monitoring and was noted to have a reassuring and reactive tracing for 1 hour post procedure. She did not have any regular contractions and there were no signs of PROM. Abdominal binder was placed to support continued vertex presentation. She was discharged home with instructions on reasons to return to L&D and otherwise she will follow up in clinic in one week to confirm presentation. ECV was successful. Procedure was well tolerated and without complication.
== END 2021-01-09 18:45 | disposition home or self-care (01) ==
LOC: WFO 14:00 → FBP 14:01 → WFO 18:45
PROVIDERS: ATTEND Obstetrics & Gynecology
DX: O32.1XX0 Maternal care for breech presentation, not applicable or unspecified (principal); Z3A.37 37 weeks gestation of pregnancy; O98.513 Other viral diseases complicating pregnancy, third trimester; B00.1 Herpesviral vesicular dermatitis; Z86.39 Personal history of other endocrine, nutritional and metabolic disease
CPT/HCPCS: 36415; 59412; 85025; 86850; 86900; 86901

== ENCOUNTER 2021-01-16 08:00 | Outpatient (CLI) | payer MEDICAID ==
[2021-01-16 21:50] LABS: CHLAMYDIA TRACHOMATIS DNA NEGATIVE (NEGATIVE); NEISSERIA GONORRHOEAE DNA NEGATIVE (NEGATIVE); TRICHOMONAS VAGINALIS DNA NEGATIVE (NEGATIVE)
== END 2021-01-16 23:59 | disposition home or self-care (01) ==
LOC: LAB.WC 08:00
PROVIDERS: ATTEND Obstetrics & Gynecology
DX: Z34.80 Encounter for supervision of other normal pregnancy, unspecified trimester (principal)
CPT/HCPCS: 87491; 87591; 87661

== ENCOUNTER 2021-01-22 21:51 | Outpatient (CLI) | payer MEDICAID ==
--- NOTE | 2021-01-23 11:10 | Ultrasound Report ---
PROCEDURE: OB F/U or Repeat INDICATIONS: SUPERVISION OF , LOW LYING PLACENTA OUTSIDE/PRIOR DATING DATA: Last menstrual period (LMP): 04/25/2020. LMP-based estimated date of delivery (STEPHANY): 01/30/2021. First dating scan (date and location): 06/12/2020. Estimated date of delivery (STEPHANY) from first dating scan: 02/03/2021. The below data below was generated using the provider stated STEPHANY of 01/30/2021 TECHNIQUE: Real-time scanning was performed of the fetus, with image documentation and biometric measurements. Endovaginal scanning: Not performed COMPARISON: 01/08/2021, 11/09/2020, 09/14/2020, 06/12/2021 FINDINGS: General: A single living intrauterine gestation is present. Presentation: Cephalic Placenta: Placental position is posterior, without previa. The inferior placental tip was seen to b e at least 3.2 cm from the internal cervical os. Amniotic fluid index: 13.1 cm, normal for gestational age. Largest pocket is 5.1 cm heart rate: 137 beats per minute. Maternal cervical canal: Closed and 5.4 cm long; normal length is 2.5 cm or more. biometrics: Biparietal diameter: 9.2 cm, 37 weeks, 3 days Head circumference: 33.5 cm, 38 weeks, 3 days Abdominal circumference: 36.0 cm, 40 weeks, 0 days Femur length: 6.8 cm, 34 weeks, 6 days Estimated gestational age from initial scan: 38 weeks, 6 days Composite gestational age from present scan: 37 weeks, 5 days Estimated weight and percentile: 3477 g, 56th percentile Measurement variability in biometric dating: +/- 10 days from 12-20 weeks gestation, +/- 2 weeks from 20-30 weeks gestation, +/- 3 weeks at 30 weeks gestation or more. Other: Not applicable. IMPRESSION: 1. Single living intrauterine in cephalic presentation. 2. Composite gestational age by today's measurements is 8 days behind the expected gestational age. 3. Normal amniotic fluid volume and closed cervix. 4. Posterior placenta is no longer low-lying. Reviewed by: Alpa Chun MD on 01/23/2021 11:09 AM PDT Approved by: Alpa Chun MD on 01/23/2021 11:09 AM PDT Station ID: [id number]
== END 2021-01-22 21:52 | disposition home or self-care (01) ==
LOC: DI 21:51
PROVIDERS: ATTEND Obstetrics & Gynecology
DX: O44.03 Complete placenta previa NOS or without hemorrhage, third trimester (principal); Z3A.37 37 weeks gestation of pregnancy

== ENCOUNTER 2021-01-24 15:07 | Outpatient (CLI) | payer MEDICAID ==
[2021-01-24] MEDS ORDERED: FERRIC GLUCONATE 125 MG in SODIUM CHLORIDE 0.9% 100ML 100 ML IV ONE (15:13)
[2021-01-24 17:03] VITALS: BP 117/63
--- NOTE | 2021-02-04 19:50 | PROVIDER PROGRESS NOTE ---
- HPI Chief Complaint: Other (iron deficiency anema) Current : Current EDU 01/30/21 Gestation 39 Weeks and 1 Days 3 Para 2 Vital Signs Temperature 98.2 F 01/24/21 15:20 Heart Rate 110 H 01/24/21 15:20 Respiratory Rate 18 01/24/21 15:20 Blood Pressure 117/74 01/24/21 15:20 Temperature 98.2 F 01/24/21 15:31 Heart Rate 11 L 01/24/21 15:31 Respiratory Rate 16 01/24/21 15:31 Blood Pressure 117/63 01/24/21 17:02 O2 Saturation 100 01/24/21 15:31 - Procedures NST Procedure: NST Procedure Start Time 14:10 Stop Time 15:10 Patient States Movement Yes NST WAS NOT PERFORMED DOPPLERS CONFIRMED VIABILITY WITH FHT 150s - Plan Plan: Patient is a 30 yo at 39+1 wga with complicated by iron deficiency anemia Patient received IV iron infusion (ferric gluconate) No NST performed Patient was not assessed by OB provider
== END 2021-01-24 17:25 | disposition home or self-care (01) ==
LOC: WFO 15:07 → FBP 15:10 → WFO 17:25
PROVIDERS: ATTEND Obstetrics & Gynecology
DX: O99.013 Anemia complicating pregnancy, third trimester (principal); D50.9 Iron deficiency anemia, unspecified; Z3A.39 39 weeks gestation of pregnancy
CPT/HCPCS: 96365; J2916; 99212

== ENCOUNTER 2021-01-27 08:12 | Inpatient (IN) | payer MEDICAID ==
[2021-01-27] MEDS ORDERED: TRANEXAMIC ACID IN NACL 1,000 MG/100 ML BAG IV PRN (11:00)
[2021-01-27] MEDS ORDERED: SODIUM CHLORIDE FLUSH 0.9% 10 ML SYRINGE IVP PRN (11:00)
[2021-01-27] MEDS ORDERED: METHYLERGONOVINE 0.2 MG/ML VIAL IM PRN (11:00)
[2021-01-27] MEDS ORDERED: LIDOCAINE-MPF 1% 30 ML VIAL ID PRN (11:00)
[2021-01-27] MEDS ORDERED: OXYTOCIN 10 UNIT/ML VIAL IM PRN (11:00)
[2021-01-27] MEDS ORDERED: CARBOPROST TROMETHAMINE 250 MCG/ML AMP IM PRN (11:00)
[2021-01-27] MEDS ORDERED: OXYTOCIN/SODIUM CHLORIDE 500 ML IV PRN (11:00)
[2021-01-27] MEDS ORDERED: miSOPROStoL 200 MCG TABLET BC PRN (11:00)
[2021-01-27 11:31] LABS: BASOPHILS % (AUTO) 0.2 %; EOSINOPHILS % (AUTO) 0.3 %; HCT - HEMATOCRIT 30.1 % (37.0-47.0); HGB - HEMOGLOBIN 9.1 g/dL (12.0-16.0); LYMPHOCYTES % (AUTO) 21.9 %; MEAN CORPUSCULAR HEMOGLOBIN 24.5 pg (27.0-31.0); MEAN CORPUSCULAR HGB CONC 30.2 g/dL (32.0-36.0); MEAN CORPUSCULAR VOLUME 80.9 fL (81.0-99.0); MEAN PLATELET VOLUME 9.9 fL (7.9-10.8); MONOCYTES # (AUTO) 0.6 10^3/uL (0.0-1.0); MONOCYTES % (AUTO) 6.3 %; NEUTROPHILS # (AUTO) 6.5 10^3/uL (1.5-6.6); NEUTROPHILS % (AUTO) 70.3 %; PLT - PLATELET COUNT 254 10^3/uL (130-450); RED BLOOD COUNT 3.72 10^6/uL (4.20-5.40); RED CELL DISTRIBUTION WIDTH 14.4 % (12.0-15.0); WHITE BLOOD COUNT 9.3 x10^3/uL (4.8-10.8)
[2021-01-27] MEDS: miSOPROStoL 100 MCG TABLET BC SCH ×2 (11:31→15:42)
--- NOTE | 2021-01-27 11:36 | HISTORY & PHYSICAL EXAMINATION ---
Admit History - Visit Reason Visit Reason: Contractions, Other (Patient is 39 3/7 presents for Elective Induction of labor.) - : 3 Parity: 2 Premature: 0 Ectopic: 0 : 0 Care: positive: Other ( care with [facility] Risk/History: positive: None Complications This : positive: None, Other (Anemia in 3rd trimester.) Smoking Status: Former smoker - Mother's Labs Mother's Blood Type: positive: A Mother's RH: positive: Positive GBS: positive: Group B Step Negative Rubella Status: positive: Equivocal (Prior history of Toby's diease. TSH normal, last on 11/14/2020) - Other Maternal History Other Maternal History: 30 yo at 39 4/7 weeks. Patient presents for Elective induction of labor. Patient has had iron infusions with anemia in third trimester. Patient reports good movement. Patient denies contractions, SROM or vaginal bleeding. Meds/Allgy - Home Medications Home Medications: Ambulatory Orders Medication Instructions Recorded Confirmed Ondansetron Odt [Zofran] 4 mg TL Q6H PRN #10 tablet 09/28/18 06/20/20 HYDROcod/ACETAM 5/325 [[place] 5/325] 1 - 2 ea PO Q6H PRN #14 tablet 06/20/20 - Allergies Allergies/Adverse Reactions: Allergies Allergy/AdvReac Type Severity Reaction Status Date / Time Bleach (Sodium Hypochlorite) Allergy Unknown Verified 06/21/20 07:28 human papillomavirus Allergy Unknown Verified 01/09/21 14:29 vaccine, quadr [From Gardasil (PF)] latex Allergy Unknown Verified 06/21/20 07:28 pollen extracts Allergy Unknown Verified 01/09/21 14:29 Review of Systems - Constitutional Constitutional: denies: Fatigue, Fever, Chills - Cardiovascular Cariovascular: denies: Irregular heart rate, Palpitations - Respiratory Respiratory: denies: Cough, Sputum production - Gastrointestinal Gastrointestinal: denies: Abdominal pain, Diarrhea - Neurological Neurological: denies: General weakness, Headache - Psychiatric Psychiatric: denies: Depression - Hematologic/Lymphatic Hematologic/Lymphatic: reports: Anemia Physical - Abdominal Exam Vital Signs: Temp Pulse Resp BP Pulse Ox 98.2 F 100 16 116/79 01/27/21 08:29 01/27/21 08:29 01/27/21 08:29 01/27/21 08:29 - Monitoring Heart Rate Baseline: 130 Strip Review: positive: Category I - Presentation Presentation: positive: Vertex - Vaginal Exam Membranes: positive: Membranes intact Dilation (in cm): RN could not reach Station: positive: -3 - Speculum Exam Speculum Exam Performed: positive: No - Other Notes Labor Progress Note/Additional Text: Physical: General: Patient is resting in bed and in no acute distress. Chest: Clear to auscultation. Good breath sounds in all diaz. Heart: RRR without murmur or gallop. Abdomen: Soft, non-tender to palpation. Gravid. Extremities: No pedal or pretibial edema. Neuro: Alert and oritented times three. Normal affect. DTR's +2/+6 CX: RN unable to reach cervix or palpate presenting part. Bedside ultrasound: Vertex presentation. Monitor strip: Baseline 130's with moderate variability and Accelerations present. Category I monitor strip. Discussed process of induction with patient and . Discussed we will begin with Cytotec, consider Guillory balloon, AROM, Pitocin etc depending on how she progresses. Explained that it could take a couple of days. They did not have any questions. A-IUP 39 3/ presents for Elective induction of labor. Plan for Labor - Plan For Labor Plan for Labor: Begin Induction with Cytotec buccal.
[2021-01-27] MEDS: LACTATED RINGERS 1,000 ML IV SCH (19:05)
[2021-01-27] MEDS ORDERED: ROPIVACAINE 0.2% 200 MG/100 ML BAG EP ONE (19:09)
--- NOTE | 2021-01-27 19:11 | ANESTHESIA ---
Pre-Anesthesia VS, & Labs - Diagnosis Active labor - Procedure vaginal delivery Vital Signs: Temp Pulse Resp BP Pulse Ox 36.8 C 100 16 116/79 01/27/21 08:29 01/27/21 08:29 01/27/21 08:29 01/27/21 08:29 Height: 5 ft 10 in Weight (kg): 107.048 kg Body Mass Index: 33.8 BMI Classification: Obese - NPO Other (labor, clear liquids) - Is Patient ?: Yes - Lab Results Current Lab Results: Laboratory Tests 01/27/21 11:08: Blood Type A POSITIVE, Antibody Screen NEGATIVE 01/27/21 11:08: WBC 9.3, RBC 3.72 L, Hgb 9.1 L, Hct 30.1 L, MCV 80.9 L, MCH 24.5 L, MCHC 30.2 L, RDW 14.4, Plt Count 254, MPV 9.9, Neut # (Auto) 6.5, Lymph # (Auto) 2.0, [place] # (Auto) 0.6, Eos # (Auto) 0.0, Baso # (Auto) 0.0, Absolute Nucleated RBC 0.00, Nucleated RBC % 0.0 Lab results reviewed: Yes Fish Bones: 01/27/21 11:08 Home Medications and Allergies Active Medications Carboprost Tromethamine (Carboprost Tromethamine 250 Mcg/Ml Amp) 250 mcg IM Q15M PRN PRN Reason: Step 4: Hemorrhage protocol Stop: 02/01/21 11:02 Lactated Ringer's (Lr) 1,000 mls @ 100 mls/hr IV .Q10H GONZALO Last Admin: 01/27/21 19:05 Dose: 100 mls/hr Documented by: Oxytocin/Sodium Chloride (Pitocin/Sodium Chloride) 500 mls @ 999 mls/hr IV PRN PRN; Protocol PRN Reason: POST- HEMORR PREVENTION Stop: 02/01/21 11:02 Tranexamic Acid (Tranexamic 1,000 Mg/100ml-Nacl) 1,000 mg in 100 mls @ 600 mls/hr IV .ONCE PRN PRN Reason: EBL >1200mL and within 3hr Stop: 02/01/21 11:02 Lidocaine HCl (Lidocaine-Mpf 1% 30 Ml Vial) 30 ml ID .ONCE PRN PRN Reason: PERINEAL REPAIR Stop: 02/01/21 11:02 Methylergonovine Maleate (Methylergonovine 0.2 Mg/Ml Vial) 0.2 mg IM .ONCE PRN PRN Reason: Step 2: Hemorrhage protocol Stop: 02/01/21 11:02 Misoprostol (Misoprostol 200 Mcg Tablet) 800 mcg BC .ONCE PRN PRN Reason: Step 3: Hemorrhage protocol Stop: 02/01/21 11:02 Misoprostol (Misoprostol 100 Mcg Tablet) 50 mcg BC Q4H GONZALO Last Admin: 01/27/21 15:42 Dose: 50 mcg Documented by: Oxytocin (Oxytocin 10 Unit/Ml Vial) 10 unit IM .ONCE PRN PRN Reason: Step one: If no IV access Stop: 02/01/21 11:02 Sodium Chloride (Sodium Chloride Flush 0.9% 10 Ml Syringe) 10 ml IVP 0100,0900,1700 GONZALO Sodium Chloride (Sodium Chloride Flush 0.9% 10 Ml Syringe) 10 ml IVP PRN PRN PRN Reason: NEEDED PER PROVIDER ORDERS Allergies/Adverse Reactions: Allergies Allergy/AdvReac Type Severity Reaction Status Date / Time Bleach (Sodium Hypochlorite) Allergy Unknown Verified 06/21/20 07:28 human papillomavirus Allergy Unknown Verified 01/09/21 14:29 vaccine, quadr [From Gardasil (PF)] latex Allergy Unknown Verified 06/21/20 07:28 pollen extracts Allergy Unknown Verified 01/09/21 14:29 Anes History & Medical History - Anesthetic History Family history of Anesthesia Complications: Denies Family history of Malignant Hyperthermia: Denies - Medical History Cardiovascular: reports: None Pulmonary: reports: None Gastrointestinal: reports: None Urinary: reports: None Neuro: reports: None Musculoskeletal: reports: None Endocrine/Autoimmune: reports: HyPOthyroidism Blood Disorders: reports: Anemia Skin: reports: None Smoking Status: Former smoker (quit 3 years ago) Psychosocial: reports: No issues indicated History of Cancer?: No - Obstetrical History : 3 Parity: 2 Events: reports: None Complications: reports: None, Other (Anemia in 3rd trimester.) Exam General: Alert, Oriented x3, Cooperative, No acute distress Dental: WNL Mouth Openin Fingerbreadth Neck Mobility: Normal Mallampati classification: I Thyromental Distance: 4-6 cm Mental/Cognitive Status: Alert/Oriented X3, Normal for patient Plan Anesthesia Type: Epidural Consent for Procedure(s) Verified and Reviewed: Yes Code Status: Attempt Resuscitation ASA classification: 2-Mild systemic disease Is this case an emergency?: No
[2021-01-27] MEDS ORDERED: ROPIVACAINE 0.2% 200 MG/100 ML BAG EP PRN (19:35)
[2021-01-27] MEDS ORDERED: NALOXONE 0.4 MG/ML VIAL IVP PRN (19:35)
[2021-01-27] MEDS ORDERED: ONDANSETRON 4 MG/2 ML VIAL IVP PRN (19:35)
[2021-01-27] MEDS ORDERED: ePHEDrine 50 MG/ML VIAL IVP PRN (19:35)
--- NOTE | 2021-01-27 20:16 | PROVIDER PROGRESS NOTE ---
Labor Progress Note - Uterine Monitoring Contraction Intensity: positive: Moderate Uterine Resting Tone: positive: Soft - Monitoring Monitor Mode: positive: External ultrasound Heart Rate Baseline: 140 Heart Rate Variability: positive: Moderate (6-25 bmp) Accelerations: positive: Present, 15x15 - Vaginal Exam Dilation (in cm): 4 Effacement (%): 50 Station: -3, Ballotable Cervical Position: Anterior - Labor Progress Note Labor Progress Note/Additional Text: Patient is reseting comfortably with epidural. CX is 4/50/-3 and ballotable. monitor is category I with moderate variabilty and baseline 140. Accelrations present. Discussed with patient and that due to head still being ballotable I cannot perform AROM, so we will utilized Pitocin to continue her contractions. Discussed with URIEL Haines to place SCD's because patient has not been ambulating except to bathroom.
[2021-01-27] MEDS ORDERED: OXYTOCIN/SODIUM CHLORIDE 500 ML IV SCH (21:00)
[2021-01-28] MEDS: LACTATED RINGERS 1,000 ML IV SCH (00:18)
[2021-01-28] MEDS: miSOPROStoL 100 MCG TABLET BC SCH (00:34)
[2021-01-28] MEDS ORDERED: fentaNYL 100 MCG/2 ML VIAL ONE (00:40)
[2021-01-28] MEDS ORDERED: BUPIVACAINE 0.25% PF 10 ML VIAL ONE (00:40)
[2021-01-28] MEDS ORDERED: ROPIVACAINE 0.2% 200 MG/100 ML BAG EP PRN (00:56)
--- NOTE | 2021-01-28 00:56 | CONSULTATION NOTE ---
Consultation Report: Called to bedside to assess labor epidural. Patient rating pain 8/10, Pain level assessed at L3. Pump increased to intermittent 12 mL q 50 min. Bolus of Fentanyl 100 mcg and Bupivacaine 0.25% 4 mL. Patient re-evaluated and pain decreasing, now only lower perineal pressure, patient bag of water broke and now completely dilated per RN, getting ready for delivery, Dr Israel called in
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
[2021-01-28] MEDS ORDERED: MEASLES,MUMPS & RUBELLA VACC 0.5 ML VIAL SUBQ ONE (01:41)
[2021-01-28] MEDS ORDERED: HYDROCORTISONE 1% CREAM 28 GM TUBE PR PRN (01:41)
[2021-01-28] MEDS ORDERED: ONDANSETRON ODT 4 MG TABLET TL PRN (01:41)
[2021-01-28] MEDS ORDERED: WITCH HAZEL/GLYCERIN 1 PAD TOP PRN (01:41)
[2021-01-28] MEDS ORDERED: LACTATED RINGERS 1,000 ML IV SCH (02:00)
[2021-01-28] MEDS: IBUPROFEN 600 MG TABLET PO SCH ×3 (05:18→20:46)
[2021-01-28] MEDS: ACETAMINOPHEN 500 MG TABLET PO SCH ×2 (06:20→14:20)
[2021-01-28] MEDS: SODIUM CHLORIDE FLUSH 0.9% 10 ML SYRINGE IVP SCH ×3 (09:50→11:11)
[2021-01-28] MEDS: DOCUSATE SODIUM 100 MG CAPSULE PO SCH (09:50)
--- NOTE | 2021-01-28 16:34 | DISCHARGE SUMMARY ---
"Discharge Summary Admit Date: 01/27/21 Discharge Date: 01/29/21 Discharging Provider: Ronald Israel DO Code Status: Attempt Resuscitation Condition at Discharge: Good Discharge Disposition: 01 Home, Self Care Discharge Facility Name: [facility] - DIAGNOSES Admission Diagnoses: IUP 39 3/7, Elective Induction of labor. - HPI History of Present Illness: 30 yo at 39 3/7 Elective induction of labor. Patient had consistent care. - CONSULTS | PROCEDURES Procedures: Cytotec cervical ripening. Epidural Anesthesia, Pitocin utilized. without complications. - HOSPITAL COURSE Hospital Course: 30 yo at 39 3/7 had elective induction of labor. Patient had Cytotec and Pitocin utilized for induction. Patient had Epidural Anesthesia. Patient had over intact perineum. Living male with Apgars of 8/9. Normal course. - ALLERGIES Allergies/Adverse Reactions: Allergies Allergy/AdvReac Type Severity Reaction Status Date / Time Bleach (Sodium Hypochlorite) Allergy Unknown Verified 01/27/21 21:50 human papillomavirus Allergy Unknown Verified 01/27/21 21:50 vaccine, quadr [From Gardasil (PF)] latex Allergy Unknown Verified 01/27/21 21:50 pollen extracts Allergy Unknown Verified 01/27/21 21:50 - MEDICATIONS Home Medications: Ambulatory Orders Medication Instructions Recorded Confirmed Ondansetron Odt [Zofran] 4 mg TL Q6H PRN #10 tablet 09/28/18 06/20/20 HYDROcod/ACETAM 5/325 [[place] 5/325] 1 - 2 ea PO Q6H PRN #14 tablet 06/20/20 - PHYSICAL EXAM AT DISCHARGE General Appearance: positive: No acute distress Eyes Bilateral: positive: Normal inspection ENT: positive: ENT inspection nml Neck: positive: Nml inspection Respiratory: positive: Chest non-tender, Breath sounds nml Cardiovascular: positive: Regular rate & rhythm, No murmur, No gallop Peripheral Pulses: positive: 2+ Abdomen: positive: Non-tender, Other (Fundus is firm and below the umbilicus.) Skin: positive: Color nml, No rash Extremities: positive: Nml appearance, No pedal edema Neurologic/Psychiatric: positive: Oriented x3 Reflexes: Knee (L): 2+ - LABS Result Diagrams: 01/27/21 11:08 - QUALITY (Female Hip Fx Only) Was patient sent home on osteoporosis medication?: No - FOLLOW UP Follow Up: In clinic in one week and 6 weeks. - TIME SPENT Time Spent in Discharge (Minutes): 30"
[2021-01-28 17:01] LABS: BASOPHILS % (AUTO) 0.3 %; EOSINOPHILS # (AUTO) 0.1 10^3/uL (0.0-0.7); EOSINOPHILS % (AUTO) 0.6 %; HCT - HEMATOCRIT 29.7 % (37.0-47.0); HGB - HEMOGLOBIN 9.2 g/dL (12.0-16.0); LYMPHOCYTES # (AUTO) 1.8 10^3/uL (1.5-3.5); LYMPHOCYTES % (AUTO) 17.2 %; MEAN CORPUSCULAR HEMOGLOBIN 25.1 pg (27.0-31.0); MEAN CORPUSCULAR VOLUME 81.1 fL (81.0-99.0); MEAN PLATELET VOLUME 9.4 fL (7.9-10.8); MONOCYTES # (AUTO) 0.5 10^3/uL (0.0-1.0); MONOCYTES % (AUTO) 5.1 %; NEUTROPHILS # (AUTO) 7.9 10^3/uL (1.5-6.6); NEUTROPHILS % (AUTO) 76.2 %; PLT - PLATELET COUNT 229 10^3/uL (130-450); RED BLOOD COUNT 3.66 10^6/uL (4.20-5.40); RED CELL DISTRIBUTION WIDTH 14.6 % (12.0-15.0); WHITE BLOOD COUNT 10.3 x10^3/uL (4.8-10.8)
[2021-01-29] MEDS: ACETAMINOPHEN 500 MG TABLET PO SCH ×2 (01:13→10:06)
[2021-01-29] MEDS: IBUPROFEN 600 MG TABLET PO SCH (03:59)
[2021-01-29] MEDS ORDERED: MEASLES,MUMPS & RUBELLA VACC 0.5 ML VIAL SUBQ ONE (10:00)
[2021-01-29 10:05] VITALS: BP 109/64
[2021-01-29] MEDS: DOCUSATE SODIUM 100 MG CAPSULE PO SCH (10:06)
== END 2021-01-29 11:10 | disposition home or self-care (01) | DRG 807 ==
LOC: WFO 08:12 → FBP 08:15 → WFO 10:59 → FBP 11:00
PROVIDERS: ADMIT Obstetrics & Gynecology; ATTEND Obstetrics & Gynecology
PROC: 10E0XZZ Delivery of Products of Conception, External Approach (ICD-10-PCS; principal; 2021-01-28)
PROC: 3E0DXGC Introduction of Other Therapeutic Substance into Mouth and Pharynx, External Approach (ICD-10-PCS; 2021-01-28)
DX: O69.81X0 Labor and delivery complicated by cord around neck, without compression, not applicable or unspecified (principal); Z37.0 Single live birth; O70.0 First degree perineal laceration during delivery; Z3A.39 39 weeks gestation of pregnancy; Z20.822 Contact with and (suspected) exposure to COVID-19
CPT/HCPCS: 36415; 85025; 86850; 86900; 86901; 87635; A9270; J7120